=== PATIENT | female | born 1995 | race Caucasian/White ===

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

== ENCOUNTER 2018-10-09 17:24 | Emergency (ER) | payer OTHER ==
[2018-10-09 17:29] VITALS: BP 131/84
--- NOTE | 2018-10-09 17:34 | ED Physician Documentation ---
History of Present Illness - Stated complaint Stated Complaint: TOOTH PX - Chief complaint Chief Complaint: General - History obtained from History obtained from: Patient - History of Present Illness Timing: Other (Increasing pain from a left maxillary wisdom tooth that she thinks is infected and has had some purulent drainage and some reactive lymph nodes. No fevers. Has an appointment with an oral surgeon next week.) Review of Systems Constitutional: denies: Fever, Chills Throat: denies: Sore throat Cardiac: denies: Chest pain / pressure, Palpitations Respiratory: denies: Dyspnea, Cough PD PAST MEDICAL HISTORY - Past Surgical History Past Surgical History: No - Present Medications Home Medications: Ambulatory Orders Medication Instructions Recorded Confirmed Magnesium Oxide [Magnesium] 500 mg PO DAILY 07/18/13 07/08/16 Bcp 04/20/14 05/04/15 Sertraline [Zoloft] 100 mg PO DAILY 05/04/15 07/08/16 Ondansetron Odt [Zofran] 4 mg TL Q6H PRN #15 tablet 07/08/16 Prochlorperazine [Compazine] 5 mg PO Q6H 07/08/16 07/08/16 Sumatriptan Succ/Naproxen Sod 1 each PO ONCE PRN #9 tablet 07/08/16 [Treximet 85-500 mg Tablet] Sumatriptan Succinate [Imitrex] 50 mg PO 07/08/16 Amox/Clav 875/125 [Augmentin] 1 each PO Q12H #20 tablet 10/09/18 - Allergies Allergies/Adverse Reactions: Allergies Allergy/AdvReac Type Severity Reaction Status Date / Time No Known Drug Allergies Allergy Verified 10/09/18 17:28 - Social History Does the pt smoke?: No Smoking Status: Never smoker Does the pt drink ETOH?: No Does the pt have substance abuse?: No - Immunizations Immunizations are current?: Yes - POLST Patient has POLST: No PD ED PE NORMAL - Vitals Vital signs reviewed: Yes - General General: Alert and oriented X 3, No acute distress - HEENT HEENT: Other (The last tooth on the left maxilla has some buccal cellulitis, no obvious swelling or fluctuance. Its a little tender. No trismus. There is some submandibular adenopathy.) - Neck Neck: No bony TTP - Neuro Neuro: Alert and oriented X 3, Normal speech Results - Vitals Vitals: Vital Signs - 24 hr 10/09/18 17:25 Temperature 36.6 C Heart Rate 78 Respiratory 14 Rate Blood Pressure 131/84 H O2 Saturation 100 Oxygen O2 Source Room air Departure - Departure Disposition: Home, Self Care Clinical Impression: Dental infection Condition: Good Record reviewed to determine appropriate education?: Yes Instructions: ED Abscess Tooth Prescriptions: Amox/Clav 875/125 [Augmentin] 1 each PO Q12H #20 tablet Comments: Follow-up with the dentist on Saturday as scheduled, return for new or worsening symptoms.
== END 2018-10-09 17:38 | disposition home or self-care (01) ==
LOC: ED 17:24
DX: K04.7 Periapical abscess without sinus (principal); K12.2 Cellulitis and abscess of mouth
CPT/HCPCS: 99283